=== PATIENT | male | born 2000 | race Caucasian/White ===

== ENCOUNTER 2019-03-02 17:57 | Emergency (ER) | payer SELFPAY ==
[2019-03-02] MEDS ORDERED: Dicyclomine 20 MG TAB ONE (18:16)
[2019-03-02] MEDS ORDERED: Ondansetron ODT 4 MG TAB ONE (18:16)
== END 2019-03-02 18:56 | disposition home or self-care (01) ==
LOC: ERS 17:57
DX: R10.10 Upper abdominal pain, unspecified (principal); R11.2 Nausea with vomiting, unspecified
CPT/HCPCS: 99283; Q0162

== ENCOUNTER 2019-03-14 19:10 | Emergency (ER) | payer SELFPAY ==
[2019-03-14] MEDS ORDERED: Ibuprofen 800 MG TAB ONE (20:05)
--- NOTE | 2019-03-14 20:18 | RAD ---
XR Finger(s) Lt Min 2 View History: Injury Comparison: None. Findings: No acute fracture or malalignment. Soft tissues are unremarkable. Impression: No acute fracture or malalignment.
[2019-03-14] MEDS ORDERED: Lidocaine 1% (PF) 30 ML VIAL ONE (20:29)
[2019-03-14] MEDS ORDERED: Adacel (T-DAP) 0.5 ML SYRINGE ONE (20:56)
== END 2019-03-14 21:09 | disposition home or self-care (01) ==
LOC: ERS 19:10
DX: S60.132A Contusion of left middle finger with damage to nail, initial encounter (principal); W23.0XXA Caught, crushed, jammed, or pinched between moving objects, initial encounter
CPT/HCPCS: 11740; 90471; 90715; J2001

== ENCOUNTER 2020-01-16 16:02 | Emergency (ER) | payer SELFPAY ==
[~2020-01-16 16:02] MED LIST: Iopamidol 370 76% 100 ML VIAL ONE
[2020-01-16] MEDS ORDERED: Morphine 4 MG/ML VIAL ONE (16:21)
[2020-01-16] MEDS ORDERED: Ondansetron PF 4 MG/2 ML Vial ONE (16:21)
[2020-01-16 16:35] LABS: #Basophils 0.1 thou/uL (0.0-0.2); #Eosinphils 0.5 thou/uL (0.0-0.7); #Monocytes 0.3 thou/uL (0.11-0.59); #Neutrophils 3.7 thou/uL (1.40-6.50); %Eosinophils 7.5 % (0.0-10.0); %Lymphocytes 30.3 % (21.0-51.0); %Monocytes 4.5 % (0.0-10.0); %Neutrophils 55.7 % (42.0-75.0); Hemoglobin 16.5 g/dL (14.0-18.0); Mean Corpuscular HGB CONC 35.9 g/dL (32.0-36.0); Mean Corpuscular Hemoglobin 31.5 pg (27.0-31.0); Mean Corpuscular Volume 87.5 fL (78.0-98.0); Mean Platelet Volume 8.1 fL (7.4-10.4); Platelet Count 229 thou/uL (130-400); RBC Distribution Width 11.5 % (11.5-14.5); Red Blood Cell (RBC) Count 5.26 mill/uL (4.70-6.10); White Blood Cell (WBC) Count 6.6 thou/uL (4.8-10.8)
[2020-01-16 16:55] LABS: ALT (SGPT) 7 U/L (8-55); AST (SGOT) 14 U/L (5-34); Albumin 5.2 g/dL (3.5-5.0); Alkaline Phosphatase 51 U/L (40-110); Anion Gap 13 mmol/L (10-20); BUN (Urea Nitrogen) 13 mg/dL (8.9-20.6); Bilirubin, Total 0.7 mg/dL (0.2-1.2); Calc. Creatinine Clearance 0 mL/min (70-130); Carbon Dioxide 27 mmol/L (22-29); Chloride 102 mmol/L (98-107); Estimated GFR-MDRD Greater than 90; Globulin 2.6 g/dL (2.4-3.5); Glucose 114 mg/dL (70-105); Lipase 11 U/L (8-78); Potassium 3.3 mmol/L (3.5-5.1); Protein, Total 7.8 g/dL (6.0-8.3); Sodium 139 mmol/L (136-145)
[2020-01-16 17:31] LABS: Bilirubin Negative (Negative); Blood, Urine Negative (Negative); Clarity Clear (Clear); Glucose, Urine (Dipstick) Normal (Negative); Leukocyte Negative Leu/uL (Negative); Nitrite Negative (Negative); Protein, Urine (Dipstick) 20 mg/dL (Neg-Trace)
--- NOTE | 2020-01-16 19:16 | CT ---
EXAM: CT ABDOMEN AND PELVIS HISTORY: Right lower quadrant pain COMPARISON: None. Procedure: Multiple contiguous axial images were obtained and a CT of the abdomen and pelvis with IV contrast. C oronal reformats were performed. FINDINGS: Lower Chest: within normal limits. Vessels: Normal caliber aorta Heart: Normal heart size Abdomen: Portal vein:Patent Gallbladder: No calcified gallstones. Normal caliber wall. Liver: within normal limits. Pancreas: within normal limits. Spleen: within normal limits. Adrenals: within normal limits. Kidneys: Symmetric enhancement. No obstructive uropathy. Peritoneum: No ascites or free air, no fluid collection. Bowel: Limited evaluation due to the lack of oral contrast administration. No evidence of bowel obstr uction. Ileocecal junction is unremarkable. Normal caliber appendix. The proximal appendix appears to be air filled and filled with contrast. The distal aspect does not appear to be air-filled but is not dilated, measuring 0.4 cm. No adjacent periappendiceal inflammatory change. Scattered fecal material in a nondistended, nondilated colon. Mesentery and Retroperitoneum: No enlarged mesenteric or retroperitoneal lymph nodes. Abdominal Wall: within normal limits. Pelvis: Reproductive Organs: Reproductive organs are unremarkable. Pelvis: No mass, lymphadenopathy, free air or free fluid. Bladder: within normal limits. Bones: within normal limits. IMPRESSION: 1. No acute abnormality in the abdomen or pelvis 2. No CT evidence of appendicitis.
== END 2020-01-16 19:44 | disposition home or self-care (01) ==
LOC: ERS 16:02
DX: R10.33 Periumbilical pain (principal); R10.813 Right lower quadrant abdominal tenderness; R11.0 Nausea; R63.0 Anorexia
CPT/HCPCS: 74177; 80053; 81003; 83690; 85025; 96374; 96375; J2270; J2405; Q9967

== ENCOUNTER 2020-11-21 17:52 | Emergency (ER) | payer SELFPAY ==
[2020-11-22 00:46] LABS: SARS-CoV-2 PCR by NAA Not Detected (NotDetected)
== END 2020-11-21 18:45 | disposition home or self-care (01) ==
LOC: ERS 17:52
DX: R11.2 Nausea with vomiting, unspecified (principal); Z20.822 Contact with and (suspected) exposure to COVID-19
CPT/HCPCS: 87635; 87804; 99283; U0003; U0005

== ENCOUNTER 2021-05-24 18:46 | Emergency (ER) | payer OTHER ==
[2021-05-25 12:30] LABS: SARS-CoV-2 PCR by NAA Not Detected (NotDetected)
== END 2021-05-24 20:10 | disposition home or self-care (01) ==
LOC: ERS 18:46
DX: R05 Cough (principal); R06.02 Shortness of breath; Z20.822 Contact with and (suspected) exposure to COVID-19
CPT/HCPCS: 99283; U0003; U0005

== ENCOUNTER 2022-03-04 22:26 | Emergency (ER) | payer SELFPAY ==
[2022-03-04] MEDS ORDERED: Ondansetron PF 4 MG/2 ML Vial ONE (22:55)
[2022-03-04] MEDS ORDERED: Dicyclomine 20 MG/2 ML VIAL ONE (22:55)
[2022-03-04] MEDS ORDERED: Famotidine 40 MG/4 ML VIAL SLOW IVP SCH (23:15)
[2022-03-05] MEDS ORDERED: Ketorolac Tromethamine 30 MG/ML VIAL ONE (00:07)
[2022-03-05 01:28] LABS: #Basophils 0.1 thou/uL (0.0-0.2); #Eosinphils 0.1 thou/uL (0.0-0.7); #Lymphocytes 1.5 thou/uL (1.20-3.40); #Monocytes 0.5 thou/uL (0.11-0.59); #Neutrophils 9.4 thou/uL (1.40-6.50); %Basophils 0.5 % (0.0-1.0); %Eosinophils 0.5 % (0.0-10.0); %Lymphocytes 13.3 % (21.0-51.0); %Monocytes 3.9 % (0.0-10.0); %Neutrophils 81.8 % (42.0-75.0); Hemoglobin 13.9 g/dL (14.0-18.0); Mean Corpuscular HGB CONC 34.5 g/dL (32.0-36.0); Mean Corpuscular Hemoglobin 31.1 pg (27.0-31.0); Mean Corpuscular Volume 90.3 fL (78.0-98.0); Mean Platelet Volume 7.4 fL (7.4-10.4); Platelet Count 222 thou/uL (130-400); RBC Distribution Width 11.5 % (11.5-14.5); Red Blood Cell (RBC) Count 4.46 mill/uL (4.70-6.10); White Blood Cell (WBC) Count 11.5 thou/uL (4.8-10.8)
[2022-03-05 01:52] LABS: ALT (SGPT) 10 U/L (8-55); AST (SGOT) 13 U/L (5-34); Albumin 3.5 g/dL (3.5-5.0); Alkaline Phosphatase 28 U/L (40-110); Anion Gap 12 mmol/L (10-20); BUN (Urea Nitrogen) 10 mg/dL (8.9-20.6); Bilirubin, Total 0.4 mg/dL (0.2-1.2); Calc. Creatinine Clearance 0 mL/min (70-130); Calcium 8.4 mg/dL (7.8-10.44); Carbon Dioxide 22 mmol/L (22-29); Chloride 107 mmol/L (98-107); Globulin 1.4 g/dL (2.4-3.5); Glucose 104 mg/dL (70-105); Lipase 8 U/L (8-78); Potassium 3.5 mmol/L (3.5-5.1); Protein, Total 4.9 g/dL (6.0-8.3); Sodium 137 mmol/L (136-145)
[2022-03-05 03:42] LABS: Bilirubin Negative (Negative); Blood, Urine Negative (Negative); Clarity Clear (Clear); Glucose, Urine (Dipstick) Normal (Negative); Ketone, Urine Negative (Negative); Leukocyte Negative Leu/uL (Negative); Nitrite Negative (Negative); Protein, Urine (Dipstick) Negative (Neg-Trace); pH, Urine 7.5 (5.0-9.0)
[2022-03-05] MEDS ORDERED: Iopamidol-370 76% 500 ML 1 ML ONE (11:33)
== END 2022-03-05 04:05 | disposition home or self-care (01) ==
LOC: ERS 22:26
DX: A05.9 Bacterial foodborne intoxication, unspecified (principal)
CPT/HCPCS: 36415; 74177; 80053; 81003; 83690; 85025; 96361; 96372; 96374; 96375; J0500; J1885; J2405; Q9967

== ENCOUNTER 2022-07-05 19:47 | Emergency (ER) | payer SELFPAY ==
[2022-07-05 20:22] LABS: #Lymphocytes 1.2 thou/uL (1.20-3.40); #Monocytes 0.6 thou/uL (0.11-0.59); #Neutrophils 2.9 thou/uL (1.40-6.50); %Basophils 0.2 % (0.0-1.0); %Eosinophils 0.1 % (0.0-10.0); %Lymphocytes 25.2 % (21.0-51.0); %Monocytes 13.2 % (0.0-10.0); %Neutrophils 61.2 % (42.0-75.0); Hemoglobin 15.6 g/dL (14.0-18.0); Mean Corpuscular HGB CONC 34.2 g/dL (32.0-36.0); Mean Corpuscular Volume 87.6 fL (78.0-98.0); Mean Platelet Volume 8.3 fL (7.4-10.4); Platelet Count 202 thou/uL (130-400); RBC Distribution Width 11.8 % (11.5-14.5); White Blood Cell (WBC) Count 4.7 thou/uL (4.8-10.8)
[2022-07-05 21:20] LABS: ALT (SGPT) 11 U/L (8-55); AST (SGOT) 20 U/L (5-34); Albumin 4.5 g/dL (3.5-5.0); Alkaline Phosphatase 31 U/L (40-110); Anion Gap 17 mmol/L (10-20); BUN (Urea Nitrogen) 22 mg/dL (8.9-20.6); Bilirubin, Total 0.6 mg/dL (0.2-1.2); Calc. Creatinine Clearance 0 mL/min (70-130); Calcium 9.3 mg/dL (7.8-10.44); Carbon Dioxide 23 mmol/L (22-29); Chloride 97 mmol/L (98-107); Estimated GFR 92; Globulin 2.4 g/dL (2.4-3.5); Glucose 97 mg/dL (70-105); Potassium 3.8 mmol/L (3.5-5.1); Protein, Total 6.9 g/dL (6.0-8.3); Sodium 133 mmol/L (136-145)
[2022-07-05] MEDS ORDERED: Lorazepam 2 MG/ML VIAL ONE (21:58)
== END 2022-07-05 23:02 | disposition home or self-care (01) ==
LOC: ERS 19:47
DX: R42 Dizziness and giddiness (principal)
CPT/HCPCS: 36415; 71045; 80053; 83880; 84484; 85025; 93005; 96374; J2060

== ENCOUNTER 2022-10-05 13:30 | Emergency (ER) | payer SELFPAY ==
[2022-10-05] MEDS ORDERED: Acetaminophen 500 MG TAB ONE (14:27)
== END 2022-10-05 14:43 | disposition home or self-care (01) ==
LOC: ERS 13:30
DX: S80.02XA Contusion of left knee, initial encounter (principal); W19.XXXA Unspecified fall, initial encounter

== ENCOUNTER 2023-11-03 17:56 | Emergency (ER) | payer SELFPAY ==
[2023-11-03] MEDS ORDERED: Boostrix 0.5 ML (Tdap) VIAL (>/=7 yrs of age) ONE (18:25)
[2023-11-03] MEDS ORDERED: Ibuprofen 200 MG TAB ONE (18:25)
== END 2023-11-03 20:17 | disposition home or self-care (01) ==
LOC: ERS 17:56
DX: S81.852A Open bite, left lower leg, initial encounter (principal); S61.551A Open bite of right wrist, initial encounter; S80.812A Abrasion, left lower leg, initial encounter; S50.811A Abrasion of right forearm, initial encounter; W54.0XXA Bitten by dog, initial encounter; Z23 Encounter for immunization
CPT/HCPCS: 71045; 90471; 90715